=== PATIENT | male | born 1985 | race American Indian/Alaskan Native ===

== ENCOUNTER 2016-10-21 12:16 | Emergency (ER) | payer SELFPAY ==
--- NOTE | 2016-10-21 14:20 | Emergency Department Report ---
History of Present Illness - General Chief Complaint: Overdose Stated Complaint: OVERDOSE Time Seen by Provider: 10/21/16 13:29 Source: patient, EMS Mode of arrival: Stretcher Limitations: No Limitations - History of Present Illness Initial Comments: 30-year-old male presents emergency department via EMS after an overdose. Patient states that he took the pills because he did not want to "feel anymore" . Patient is unwilling to give any further information. EMS reports that family states that the patient took the pills at approximately 11 AM. The patient's girlfriend reportedly has prescriptions for Xanax 2 mg tablets and Ambien 10 mg tablets. She had both of these prescriptions filled yesterday with 30 tablets each. EMS reports that 9 Ambien tablets and 21 Xanax tablets are currently missing. There are no other complaints. MD Complaint: intentional overdose -: Sudden, This morning Intent: suicide attempt, want to escape How Overdose Was Discovered: family/friend present Associated Symptoms: depression Treatments Prior to Arrival: none - Related Data Allergies Allergy/AdvReac Type Severity Reaction Status Date / Time No Known Allergies Allergy Unverified 10/21/16 13:48 ED Review of Systems ROS: Stated complaint: OVERDOSE Other details as noted in HPI Comment: All other systems reviewed and negative Psychiatric: depression, suicidal thoughts ED Past Medical Hx - Past Medical History Previous Medical History?: Yes Hx Hypertension: Yes Hx Psychiatric Treatment: Yes (depression) Hx Asthma: Yes - Surgical History Past Surgical History?: No - Family History Family history: no significant - Social History Smoking Status: Unknown if ever smoked Substance Use Type: None ED Physical Exam - General Limitations: No Limitations General appearance: alert, in no apparent distress - Head Head exam: Present: atraumatic, normocephalic - Eye Eye exam: Present: normal appearance, PERRL, EOMI - ENT ENT exam: Present: normal exam, normal orophraynx, mucous membranes moist - Neck Neck exam: Present: normal inspection, full ROM. Absent: tenderness - Respiratory Respiratory exam: Present: normal lung sounds bilaterally. Absent: respiratory distress - Cardiovascular Cardiovascular Exam: Present: regular rate, normal rhythm, normal heart sounds - GI/Abdominal GI/Abdominal exam: Present: soft, normal bowel sounds. Absent: distended, tenderness - Extremities Exam Extremities exam: Present: normal inspection, full ROM. Absent: tenderness - Back Exam Back exam: Present: normal inspection, full ROM. Absent: tenderness - Neurological Exam Neurological exam: Present: alert, oriented X3. Absent: motor sensory deficit - Psychiatric Psychiatric exam: Present: depressed, flat affect, suicidal ideation, other ( patient tearful on exam) - Skin Skin exam: Present: warm, dry, intact ED Course Vital Signs 10/21/16 13:35 Temperature 98.1 F Pulse Rate 74 Respiratory 18 Rate Blood Pressure 146/84 O2 Sat by Pulse 98 Oximetry - Reevaluation(s) Reevaluation #1: 10/21/16 16:45 From 1013 was signed and placed on the patient's chart on arrival. Patient has been observed in the emergency department for approximately 6 hours since the time of reported ingestion. Patient has remained asymptomatic, making it unlikely that he took a significant amount of medication. Patient has been medically cleared at this time. Patient has been assessed by mental health and is currently awaiting placement. ED Medical Decision Making - Lab Data Result diagrams: 10/21/16 14:04 10/21/16 14:04 - EKG Data -: EKG Interpreted by Or EKG shows normal: sinus rhythm, axis, intervals, QRS complexes, ST-T waves Rate: normal - EKG Data When compared to previous EKG there are: previous EKG unavailable Interpretation: normal EKG - Differential Diagnosis suicide attempt, intentional overdose Critical care attestation.: If time is entered above; I have spent that time in minutes in the direct care of this critically ill patient, excluding procedure time. ED Disposition Clinical Impression: Suicide attempt by multiple drug overdose Qualifiers: Encounter type: initial encounter Qualified Code(s): T50.902A - Poisoning by unspecified drugs, medicaments and biological substances, intentional self-harm , initial encounter Depression Qualifiers: Depression Type: major depressive disorder Major depression recurrence: single episode Active/Remission status: currently active Major depression episode severity: severe Psychotic features: without psychotic features Qualified Code(s ): F32.2 - Major depressive disorder, single episode, severe without psychotic features Disposition: DC/TX PSY HOSP/PSY UNIT Is pt being admited?: No Condition: Stable Referrals: PRIMARY CARE, [Primary Care Provider] - 3-5 Days Time of Disposition: 16:46
[2016-10-21 14:24] LABS: Basophils % (Auto) 0.2 % (0.0-1.8); Eosinophils % (Auto) 1.3 % (0.0-4.3); Hematocrit 42.9 % (35.5-45.6); Hemoglobin 14.4 gm/dl (11.8-15.2); Mean Corpuscular HGB Conc 34 % (32-34); Mean Corpuscular Hemoglobin 30 pg (28-32); Mean Corpuscular Volume 89 fl (84-94); Platelet Count 260 K/mm3 (140-440); Red Blood Count 4.81 M/mm3 (3.65-5.03); Red Cell Distribution Width 13.5 % (13.2-15.2); White Blood Count 7.3 K/mm3 (4.5-11.0)
[2016-10-21 14:37] LABS: Alanine Aminotransferase 18 units/L (7-56); Albumin 4.1 g/dL (3.9-5); Albumin/Globulin Ratio 1.4 %; Alkaline Phosphatase 51 units/L (35-129); Anion Gap 18 mmol/L; BUN/Creatinine Ratio 15.55; Bilirubin,Total 1.4 mg/dL (0.1-1.2); Blood Urea Nitrogen 14 mg/dL (9-20); Carbon Dioxide 24 mmol/L (22-30); Chloride 104.5 mmol/L (98-107); Glucose 87 mg/dL (75-100); Sodium 142 mmol/L (137-145); Total Protein 7.1 g/dL (6.3-8.2)
[2016-10-21 17:01] LABS: Urine Drugs of Abuse Note Disclamer
[2016-10-21 17:30] LABS: Bilirubin,Urine NEG (Negative); Blood,Urine SM (Negative); Ketones,Urine TR mg/dL (Negative); Leukocyte Esterase,Urine NEG (Negative); Mucus,Urine 1+ /HPF; Nitrite,Urine NEG (Negative); Protein,Urine <15 mg/dL mg/dL (Negative); Urobilinogen,Urine < 2.0 mg/dL (<2.0); WBC,Urine < 1.0 /HPF (0.0-6.0)
[2016-10-21] MEDS ORDERED: BENADRYL ONE (19:32)
[2016-10-21] MEDS ORDERED: ATIVAN ONE (19:33)
[2016-10-21] MEDS ORDERED: HALDOL ONE (19:34)
[2016-10-21] MEDS ORDERED: HALDOL IM ONE (19:51)
[2016-10-21] MEDS ORDERED: BENADRYL IM ONE (19:55)
[2016-10-21] MEDS ORDERED: ATIVAN IM ONE (19:56)
[2016-10-21] MEDS ORDERED: PROAIR IH PRN (20:09)
--- NOTE | 2016-10-22 02:08 | Event Note ---
Date: 10/22/16 Vital signs are reviewed and appreciated. Psychiatric consultation and placement are pending at this time. Vital Signs 10/21/16 10/21/16 10/21/16 13:35 17:38 18:01 Temperature 98.1 F Pulse Rate 74 84 74 Respiratory 18 18 16 Rate Blood Pressure 146/84 Blood Pressure 102/64 107/65 [Right] O2 Sat by Pulse 98 99 92 Oximetry 10/21/16 10/21/16 19:10 21:00 Temperature Pulse Rate 82 Respiratory 18 16 Rate Blood Pressure Blood Pressure 132/76 [Right] O2 Sat by Pulse 100 100 Oximetry
--- NOTE | 2016-10-22 15:02 | Consultation ---
History of Present Illness - Reason for Consult Consult date: 10/22/16 Reason for consult: Mental Health Evaluation - Overdose Requesting physician: WINNIE DIAZ - Chief Complaint Chief complaint: "I just want a job" - History of Present Psychiatric Illness 30-year-old AA male presents emergency department via EMS after an overdose. Upon arrival to patient's room, he was watching TV. Patient told me that taking the Xanax and Ambien "maybe 5 pills each" was a stupid mistake. He stated that he took the pills because he was having relationship issues with his girlfriend. Also, patient has been unemployed for a while. He states that his girlfriend said mean things to him and stressing him out lately about not working. The patient is from [place] and left the state to be with his current girlfriend of 2 years. He felt betrayed and just wanted to end it all when he took the pills. The patient stated that he spit out most of the medication, but his UDS is positive for Benzos, Amphetamines, and THC on this admission. Patient stated that he does smoke a "little weed", but deny using Amphetamines. Patient became emotional during the assessment and stated, "I just want a job and make some money." He denies SI/HI's and AVH's at this time. Medications and Allergies Allergies Allergy/AdvReac Type Severity Reaction Status Date / Time No Known Allergies Allergy Unverified 10/21/16 13:48 Home Medications Medication Instructions Recorded Confirmed Last Taken Type No Known Home Medications [No 10/21/16 10/21/16 Unknown History Reported Home Medications] Active Meds: Active Medications Albuterol (Proair) 2 puff IH Q4HRT PRN PRN Reason: Shortness Of Breath Last Admin: 10/21/16 20:10 Dose: 2 puff Past psychiatric history - Past Medical History Past Medical History: other (Depression) Past Surgical History: No surgical history - past Psychiatric treatment and history psychiatric treatment history: Patient denies a psy hx, but admits to battling depression since being in this relationship and not working. Denies family hx mental illness. - Social History Social history: other (live with significant other, marijuana use) Mental Status Exam - Vital signs Last Vital Signs Temp 97.7 F 10/22/16 12:00 Pulse 80 10/22/16 12:00 Resp 20 10/22/16 12:00 BP 118/73 10/22/16 12:00 Pulse Ox 98 10/22/16 12:00 - Exam Narrative exam: ROS (-) delusions, (-) psychosis Orientation: time, place, person Affect: flat, other Mood: sad, other (emotional) Thought content: other (intact) Thought Process: Intact Perceptions: none Speech: normal rate and pattern Concentration: focused Motor activity: normal Level of consciousness: alert Memory: Intact Sleep Symptoms: None ("I sleep ok") Interaction: cooperative Results Result Diagrams: 10/21/16 14:04 10/21/16 14:04 Abnormal lab results 10/21/16 Range/Units 14:04 Salicylates < 0.3 L (2.8-20.0) mg/dL All other labs normal. Assessment and Plan Assessment and plan: Impression: MDD severe type single episode. Patient show no signs of overdose ( Ambien/Xanax) at this time. Recommendation: Continue 1013 and pending inpatient psychiatric services.
--- NOTE | 2016-10-23 17:48 | Progress Note ---
Subjective - Reason for Consult Consult date: 10/23/16 Reason for consult: overdose - Chief Complaint Chief complaint: Today patient was sleeping in the bed with a hospital gown. The patient continues to deny acute desire to harm himself or others. Patient is denying most symptoms of depression but notes a reduced appetite with weight loss as well as sad and low mood. Otherwise he is denying symptoms of anhedonia concentration difficulties and social isolation and psychomotor retardation. He is denying symptoms of acute psychosis as well as denying symptoms of alisson. Mental Status Exam - Vital signs Last Vital Signs Temp 98 F 10/23/16 12:00 Pulse 83 10/23/16 12:00 Resp 20 10/23/16 12:00 BP 111/70 10/23/16 12:00 Pulse Ox 99 10/23/16 12:00 - Exam Narrative exam: "I am doing better" He is aware of her current situation. The patient notes that their mood is: fine, but affected by being held involuntarily. Affect is stable and euthymic. Patient relates sleep is: improved. Energy levels are: stable Appetite is: reduced Anxiety: present about recent unemployment Level of cognition: not assessed comprehensively Level of consciousness: A/O x 3 Appearance: Patient appears stated age, in hospital gown, lying on bed and then sitting up Behavior: no PMR/PMA Cooperation: full Speech: fluent Thought processes: logical, linear, goal directed Thought content: no SI/HI, no delusions, no psychosis Perceptions: no AVH Insight/Judgment: fair Knowledge: age appropriate Assessment and Plan I. This screening and assessment is based on information collected from the following sources: patient, ER medical record, previous psychiatric consult note , verbal discussion with psychiatry attending who reviewed the patient's care during the last examination. II. SUICIDE RISK SCREENING (within last 30 days): A.) Suicidal thoughts/behaviors: reported OD on xanax 2 mg two tabs and ambien unknown (patient reports 2 and medical records indicates an unknown amount) The patient consistently denies having SI and notes that he did not OD to sleep forever. He notes that he acted impulsively in the context of a verbal dispute with his girlfriend. There is no previously reported OD or Suicide Attempt via any other means. SUICIDE RISK ASSESSMENT III. FACTORS THAT INCREASE RISK: A.) Demographic and Substance Use Factors: male who reports occassional EtOH use and Cannibis use (only uses socially for alcohol and per patient report patient only used marijuana once this past year. B.) Current/Recent Factors (within past 3 months): Psychosocial/Environmental Factors: ongoing dispute with his GF. Unemployed for two months. Physical Illness: none Cognitive/Psychological Factors: high functioning. no MR noted. No other factors that increase impulsivity because he is not consistently using EtOH or Cannibis. No stimulant use or diagnosis of ADHD, neurodevelopmental disorder, or TBI. C.) Historical Factors: no previous SA. No previous SIB noted. Patient is from his support system who live in [place]. His GF and her daughter are in [place]. D.) Diagnostic/Symptom/Treatment Factors: Patient is experiencing difficulty sleeping as well as a loss of appetite with weight loss. Symptoms of depression appear to be ongoing and not acute in nature. He has not received consistent treatment for his current symptoms of insomnia with comorbid appetite loss which aren't indication of a depressive disorder. E.) Acute Risk Factor Severity: fight with GF that happened just prior to OD IV. FACTORS THAT DECREASE RISK: Resilience/Protective Factors: Strong relationship with his GF and her daughter. Ideological belief agains suicide per patient report. V. Clinician's Formulation of Risk and Determination of level of Care: Using the risk factors and risk reduction factors identified above, describe your providers, etc. Describe your clinical reasoning in detail. Estimation of Imminent Risk: Patient has been placed on a 1013 due to a reported OD and risk was documented as high. Now the patient has been reassessed and is more calm. Risk has changed due to him no longer being acutely distressed by the interpersonal dispute between him and his girlfriend. Furthermore, the patient notes that he did not take the amount of Ambien and Xanax as reported in the ER documentation. Also, the patient notes that it was an impulsive act as opposed to planned and predetermined act to take his life. Patient notes that his unemployment is a big stressor; however, he has been unemployed before and has not taken his life. He does have a job lined at the current moment. Determination of Level of Care based on Suicide Risk: Partial Hospitalization Program Narrative description of clinical reasoning: This patient was admitted to the ER voluntarily for a reported overdose on Xanax and Ambien. On admission, was noted the patient had overdosed on an unknown known amount of Xanax and Ambien and was consequently placed on 1013. Over the past 2 days the patient has consistently denied a desire to harm himself and has revised his story on several occasions about his intention. Upon review of this case with the other providers who have seen him there is some inconsistency in his verbal history with each provider. This inconsistency is related to the length of the interpersonal dispute that him and his girlfriend were having and his satisfaction with that relationship. Nevertheless, the patient currently denies acute desire to harm himself and has consistently denied this for the past 48 hours. At this point time, the patient is requesting to go home on his own recognizance. He does have several acute psychosocial stressors most notably the interpersonal conflict with his girlfriend that proceeded to overdose. The chronic stressor is his unemployment and the recent relocation from [place] to [place]. He has no notable increase in impulsivity as determined by factors such as drug use and neurodevelopmental problems, such as ADHD or TBI. His level of psychological pain is fairly moderate but appears to be reducing as he has been in the ER for the past several days. There is no appropriate way to predict the future with regard to suicidality or homicidality and therefore stating that this patient will enroll not be at risk for eminent suicide is a difficult assessment to make. In spite of that fact, the current information is available to our treatment team suggested this patient indeed did not wish to kill himself with the act of taking Ambien and Xanax and was acting in an impulsive manner. The acute stressor has passed and the patient appears more rational, and the current moment. . Plan and Interventions based on Suicide Risk: 1. Mental Health to corroborate the information provided by the patient with the family 2. Help set up after care in a Partial Hospital Program or Outpatient Services 3. Independent event staff to complete another suicide risk assessment 4. Once all the above are completed, an independent psychiatrist will reassess to see if they concur and if a 1013 can be rescinded
[2016-10-23 20:00] VITALS: BP 135/99
--- NOTE | 2016-10-24 15:11 | Progress Note ---
Subjective - Reason for Consult Consult date: 10/24/16 Reason for consult: psychiatric follow up - Chief Complaint Chief complaint: The patient continues to deny acute desire to harm himself or others. He discussed his regret of taking his girlfriend's medication. He reports occasional problems with anger but denies physical aggression. He is denying symptoms of anhedonia concentration difficulties and social isolation and psychomotor retardation. He is denying symptoms of acute psychosis as well as denying symptoms of alisson. Mental Status Exam - Vital signs Last Vital Signs Temp 98.4 F 10/23/16 19:58 Pulse 73 10/23/16 19:58 Resp 18 10/24/16 08:44 BP 135/99 10/23/16 19:58 Pulse Ox 96 10/24/16 08:44 - Exam Narrative exam: "I'm doing good today" He is aware of his current situation. The patient notes that their mood is: good, but affected by being held involuntarily. Affect is stable and euthymic. Patient relates sleep is: improved. Energy levels are: stable Appetite is: reduced Anxiety: present about recent unemployment Level of cognition: not assessed comprehensively Level of consciousness: A/O x 3 Appearance: Patient appears stated age, in hospital gown Behavior: no PMR/PMA Cooperation: full Speech: fluent Thought processes: logical, linear, goal directed Thought content: no SI/HI, no delusions, no psychosis Perceptions: no AVH Insight/Judgment: fair Knowledge: age appropriate Assessment and Plan I. This screening and assessment is based on information collected from the following sources: patient, ER medical record, previous psychiatric consult note on 10/23/16 and 10/22/16, verbal discussion with psychiatry attending who reviewed the patient's care during the last examination. II. SUICIDE RISK SCREENING (within last 30 days): A.) Suicidal thoughts/behaviors: reported OD on xanax 2 mg two tabs and ambien unknown (patient reports 2 and medical records indicates an unknown amount) The patient consistently denies having SI and notes that he did not OD to sleep forever. He notes that he acted impulsively in the context of a verbal dispute with his girlfriend. There is no previously reported OD or Suicide Attempt via any other means. SUICIDE RISK ASSESSMENT III. FACTORS THAT INCREASE RISK: A.) Demographic and Substance Use Factors: male who reports occassional EtOH use and Cannabis use (only uses socially for alcohol and per patient report patient only used marijuana once this past year.) B.) Current/Recent Factors (within past 3 months): Psychosocial/Environmental Factors: Dispute with his girlfriend. He denies this to be frequent. Unemployed for two months. Physical Illness: hypertension Cognitive/Psychological Factors: high functioning. no MR noted. No other factors that increase impulsivity because he is not consistently using EtOH or Cannabis. No stimulant use or diagnosis of ADHD, neurodevelopmental disorder, or TBI. C.) Historical Factors: no previous suicide attempts. Patient is from his support system who live in [place]. His girlfriend and her daughter are in [place]. D.) Diagnostic/Symptom/Treatment Factors: Patient is experiencing difficulty sleeping as well as a loss of appetite with weight loss. Symptoms of depression appear to be ongoing and not acute in nature. He disclosed having intermittent problems with anger and attributes this to stress. He states he is able to control it and denies physical aggression. He denies homicidal ideation. He has not received consistent treatment for his current symptoms of insomnia with comorbid appetite loss which aren't indication of a depressive disorder. E.) Acute Risk Factor Severity: Argument with girlfriend happened just prior to OD IV. FACTORS THAT DECREASE RISK: Resilience/Protective Factors: Strong relationship with his girlfriend and her daughter. He states he would not ever kill himself, against his beliefs. V. Clinician's Formulation of Risk and Determination of level of Care: Using the risk factors and risk reduction factors identified above, describe your providers, etc. Describe your clinical reasoning in detail. Estimation of Imminent Risk: Patient has been placed on a 1013 due to a reported OD and risk was documented as high. Now the patient has been reassessed again and is maintaining denial of suicidal ideation. Risk has changed from the initial presentation and is consistent with yesterday's exam due to him no longer being acutely distressed by the interpersonal dispute between him and his girlfriend. The patient continues to report that he did not take the amount of Ambien and Xanax as reported in the ER documentation. The patient discussed this was an impulsive act as opposed to planned and predetermined act to take his life. Patient notes that his unemployment is a big stressor; however, he has been unemployed before and has not taken his life. He has been offered employment but has not started. Determination of Level of Care based on Suicide Risk: Partial Hospitalization Program Narrative description of clinical reasoning: This patient was admitted to the ER voluntarily for a reported overdose on Xanax and Ambien. On admission, was noted the patient had overdosed on an unknown known amount of Xanax and Ambien and was consequently placed on 1013. Over the past 3 days the patient has consistently denied a desire to harm himself. On review of the record, there was inconsistency in reports about the intentions of his action. The patient discussed his perception of this. He states his family was concerned about him and were urging him to go to the hospital because he appeared distraught and could not stop crying. Nevertheless , the patient currently denies acute desire to harm himself and has consistently denied this for the past 72 hours. Patient requests to go home. He does have several acute psychosocial stressors most notably the interpersonal conflict with his girlfriend that proceeded the overdose. The chronic stressor is his unemployment and the recent relocation from [place] to [place]. He has no notable increase in impulsivity as determined by factors such as drug use and neurodevelopmental problems, such as ADHD or TBI. There is no appropriate way to predict the future with regard to suicidality or homicidality and therefore stating that this patient will not be at risk for imminent suicide is a difficult assessment to make. In spite of that fact, the current information is available to our treatment team suggested this patient indeed did not wish to kill himself with the act of taking Ambien and Xanax and was acting in an impulsive manner. The acute stressor has passed and the patient appears more rational. . Plan and Interventions based on Suicide Risk: 1. Mental Health to corroborate the information provided by the patient with the family 2. Help set up after care in a Partial Hospital Program or Outpatient Services 3. It is recommended to rescind the 1013
--- NOTE | 2016-10-24 19:03 | Emergency Department Report ---
Blank Doc - Documentation Documentation: Patient has been reassessed by psychiatry. Recommendation is to rescind the 1013 and discharge the patient home to follow up as an outpatient. Form 1013 will be rescinded and the patient will be discharged home.
== END 2016-10-24 19:15 ==
LOC: EEVIPCON 12:16 → ED 12:16
DX: T50.902A Poisoning by unspecified drugs, medicaments and biological substances, intentional self-harm, initial encounter (principal); F32.2 Major depressive disorder, single episode, severe without psychotic features; I10 Essential (primary) hypertension; J45.909 Unspecified asthma, uncomplicated; Y92.89 Other specified places as the place of occurrence of the external cause
CPT/HCPCS: 36415; 80053; 80307; 81001; 85025; 93005; 93010; 96372; 99285; G0480; J1200; J1630; J2060; 80320